=== PATIENT | female | born 1975 | race Caucasian/White ===

== ENCOUNTER 2018-07-18 14:28 | Emergency (ER) | payer OTHER ==
[~2018-07-18] VITALS: Ht 149.9 cm; Wt 48.5 kg
[~2018-07-18 14:28] MED LIST: ATIVAN0.5 MG PO; KEFLEX500 MG PO; NOHOMEMEDICATIONS; NORINYL PO; TRINATE TABLET1 TAB PO; VITAMIN B-1100 M1 PO
[2018-07-18] MEDS ORDERED: MUPIROCIN15 GM TOP (14:52)
[2018-07-18 14:57] VITALS: BP 159/96
== END 2018-07-18 14:58 | disposition home or self-care (01) ==
LOC: M.ERS 14:28
DX: L01.00 Impetigo, unspecified (principal)